=== PATIENT | female | born 1970 | race Caucasian/White ===

== ENCOUNTER 2018-04-01 13:52 | Inpatient (IN) | payer MEDICAID ==
[2018-04-01] MEDS: PANTOPRAZOLE 40 MG INJ IV (16:39)
[2018-04-01] MEDS: morphine 4 MG/ML VIAL IV (16:40)
[2018-04-01] MEDS: SODIUM CHLORIDE 0.9% 1L BAG IV* (16:40)
[2018-04-01] MEDS: ONDANSETRON 4 MG INJ IV ×2 (16:40→22:50)
[2018-04-01] MEDS: PIPER-TAZO 3.375 GM IV (PMX) 100 ML IVPB (16:40)
[2018-04-01 16:42] LABS: ADD MAN DIFF? NO
[2018-04-01 16:48] LABS: ABNORMAL IP MESSAGE 1; HEMATOCRIT 29.4 % (37.0-47.0); HEMOGLOBIN 9.4 g/dl (12.0-16.0); MEAN CORPUSCULAR HEMOGLOBIN 27.4 pg (29.0-33.0); MEAN CORPUSCULAR VOLUME 85.7 fl (82.0-101.0); MEAN PLATELET VOLUME 9.6 fl (7.4-10.4); PLATELET COUNT 375 10^3/UL (140-415); RED BLOOD COUNT 3.43 10^6/ul (4.20-5.40); RED CELL DISTRIBUTION WIDTH 14.7 % (11.5-14.5)
[2018-04-01 16:52] LABS: POSITIVE DIFF @See below
[2018-04-01 17:05] LABS: ANION GAP 12 (8-16); BLOOD UREA NITROGEN 13 mg/dl (7-20); CALCIUM 8.6 mg/dl (8.4-10.2); CARBON DIOXIDE 25 mmol/L (21-31); CHLORIDE 104 mmol/L (97-110); CREATININE 0.84 mg/dl (0.44-1.00); GLUCOSE 156 mg/dl (70-220); POTASSIUM 3.5 mmol/L (3.5-5.1); SODIUM 137 mmol/L (135-144)
[2018-04-01 17:07] LABS: PROTIME 14.4 Sec (11.9-14.9); PT RATIO 1.1
[2018-04-01 17:08] LABS: PARTIAL THROMBOPLASTIN TIME 32.8 Sec (23.0-35.0)
[2018-04-01 17:08] LABS: LACTIC ACID 3.1 mmol/L (0.5-2.0)
[2018-04-01 17:17] LABS: TROPONIN-I < 0.012 ng/ml (0.000-0.120)
[2018-04-01 17:52] LABS: BAND NEUTROPHILS #M 4.8 10^3/ul (0.0-0.6); BAND NEUTROPHILS % (M) 30 % (0-4); BASOPHIL #M 0.4 10^3/ul (0.0-0.0); BASOPHILS % (M) 3 % (0-2); GIANT THROMBO% (M) 2 % (0-0); LYMPHOCYTES #M 0.4 10^3/ul (0.8-2.9); LYMPHOCYTES % (M) 3 % (15-51); METAMYELOCYTES #M 0.1 10^3/ul (0.0-0.0); METAMYELOCYTES %M 1 % (0-0); MONOCYTE #M 0.8 10^3/ul (0.3-0.9); MONOCYTES % (M) 5 % (0-11); PLATELET ESTIMATE NORMAL; POLYCHROMASIA 1+ (0-0); REACTIVE LYMPHOCYTES #M 0.1 10^3/ul (0.0-0.0); REACTIVE LYMPHOCYTES% (M) 1 % (0-0); SEG NEUT #M 9.9 10^3/ul (1.6-7.5); SEGMENTED NEUTROPHILS (M) % 57 % (39-77); SMUDGE%M 3 % (0-0)
[2018-04-01] MEDS: VANCOMYCIN 1 GM (PMX) 250 ML IVPB (17:58)
[2018-04-01] MEDS: ACETAMINOPHEN 325 MG TAB PO (17:58)
[2018-04-01] MEDS: HYDROmorphONE 0.5 MG/0.5 ML SYG IV (18:12)
[2018-04-01] MEDS: SOD CHLORIDE 0.9% 100 ML (19:04)
[2018-04-01] MEDS: IOHEXOL 300MG/ML 150 ML BTL (19:04)
[2018-04-01] MEDS ORDERED: hydrALAzine 20 MG INJ IV (19:30)
[2018-04-01] MEDS ORDERED: LORAZEPAM 2 MG INJ IV (19:30)
[2018-04-01] MEDS ORDERED: NA PHOSPHATE/BIPHOS 133 ML ENEMA PR (19:30)
[2018-04-01] MEDS ORDERED: NITROGLYCERIN (SL) 0.4 MG TAB SL (19:30)
[2018-04-01] MEDS ORDERED: NACL 0.9% 3 ML SYG IV (19:30)
[2018-04-01] MEDS ORDERED: VANCOMYCIN IV PER PHARMACY XX (19:30)
[2018-04-01] MEDS ORDERED: ONDANSETRON 4 MG INJ IV (19:30)
[2018-04-01] MEDS ORDERED: ACETAMINOPHEN 325 MG TAB PO (19:30)
[2018-04-01] MEDS ORDERED: ALBUTEROL/IPRATROPIUM (NEB) 3 ML AMP HHN (19:30)
[2018-04-01 20:13] LABS: LACTIC ACID 1.6 mmol/L (0.5-2.0)
[2018-04-01 20:17] LABS: FREE T4 (FREE THYROXINE) 1.77 ng/dl (0.64-1.79)
[2018-04-01] MEDS: SOD CHLORIDE 0.9% 1,000 ML IV (22:50)
[2018-04-01] MEDS: HEPARIN 5,000 UNIT/0.5 ML VIAL SC (22:52)
[2018-04-01 23:52] LABS: LACTIC ACID 1.8 mmol/L (0.5-2.0)
[2018-04-02] MEDS: PIPER-TAZO 3.375 GM IV (PMX) 100 ML IVPB ×5 (00:11→23:45)
[2018-04-02] MEDS: VANCOMYCIN 1 GM 250 ML IVPB (01:04)
[2018-04-02] MEDS: SOD CHLORIDE 0.9% 1,000 ML IV ×3 (02:04→16:30)
[2018-04-02] MEDS: MIDODRINE 5 MG TAB PO (02:58)
[2018-04-02 06:21] LABS: ABNORMAL IP MESSAGE 1; HEMATOCRIT 26.4 % (37.0-47.0); HEMOGLOBIN 8.2 g/dl (12.0-16.0); MEAN CORPUSCULAR HEMOGLOBIN 27.7 pg (29.0-33.0); MEAN CORPUSCULAR HGB CONC 31.1 g/dl (32.0-37.0); MEAN CORPUSCULAR VOLUME 89.2 fl (82.0-101.0); MEAN PLATELET VOLUME 10.4 fl (7.4-10.4); NUCLEATED RED BLOOD CELLS% 0.2 /100WBC (0.0-0.0); PLATELET COUNT 323 10^3/UL (140-415); RED BLOOD COUNT 2.96 10^6/ul (4.20-5.40); RED CELL DISTRIBUTION WIDTH 15.3 % (11.5-14.5)
[2018-04-02 06:21] LABS: WHITE BLOOD COUNT 11.5 10^3/ul (4.8-10.8)
[2018-04-02] MEDS: PANTOPRAZOLE 40 MG INJ IV (06:24)
[2018-04-02] MEDS: HYDROCODONE/APAP (5/325) TAB PO ×2 (06:26→17:14)
[2018-04-02 06:37] LABS: CHOL/HDL RATIO 7.5 RATIO; HDL CHOLESTEROL 13 mg/dl (34-88); LDL CHOLESTEROL,CALCULATED 56 mg/dl; TRIGLYCERIDES 144 mg/dl (0-149)
[2018-04-02 06:37] LABS: CHOLESTEROL 98 mg/dl (100-200)
[2018-04-02 06:56] LABS: ANION GAP 12 (8-16); BLOOD UREA NITROGEN 12 mg/dl (7-20); CALCIUM 7.5 mg/dl (8.4-10.2); CARBON DIOXIDE 18 mmol/L (21-31); CHLORIDE 113 mmol/L (97-110); CREATININE 0.58 mg/dl (0.44-1.00); GLUCOSE 152 mg/dl (70-220); MAGNESIUM 1.7 mg/dl (1.7-2.5); POTASSIUM 4.6 mmol/L (3.5-5.1); SODIUM 138 mmol/L (135-144)
[2018-04-02 07:08] LABS: ADD MAN DIFF? YES; POSITIVE DIFF @See below
[2018-04-02] MEDS: HEPARIN 5,000 UNIT/0.5 ML VIAL SC ×2 (09:27→21:13)
[2018-04-02 09:32] LABS: ANISOCYTOSIS 1+ (0-0); BAND NEUTROPHILS #M 1.6 10^3/ul (0.0-0.6); BAND NEUTROPHILS % (M) 14 % (0-4); BURR CELLS 2+ (0-0); EOSINOPHILS % (M) 2 % (0-7); GIANT THROMBO% (M) 2 % (0-0); LYMPHOCYTES #M 0.9 10^3/ul (0.8-2.9); LYMPHOCYTES % (M) 8 % (15-51); MONOCYTES % (M) 9 % (0-11); PLATELET ESTIMATE NORMAL; POIKILOCYTOSIS 3+ (0-0); POLYCHROMASIA 2+ (0-0); SEG NEUT #M 7.9 10^3/ul (1.6-7.5); SEGMENTED NEUTROPHILS (M) % 67 % (39-77); SMUDGE%M 8 % (0-0); TOXIC GRANULATION 1+ (0-0)
[2018-04-02] MEDS: VANCOMYCIN 1.25 GM in SOD CHLORIDE 0.9% 250 ML IVPB (13:34)
[2018-04-02 15:59] LABS: HEMOGLOBIN A1C 5.7 % (0-5.9)
[2018-04-02] MEDS: KETOROLAC 30 MG INJ IV (17:18)
[2018-04-03] MEDS: ACETAMINOPHEN 325 MG TAB PO ×2 (00:06→20:14)
[2018-04-03] MEDS: VANCOMYCIN 1.25 GM in SOD CHLORIDE 0.9% 250 ML IVPB ×2 (01:06→14:30)
[2018-04-03] MEDS: SOD CHLORIDE 0.9% 1,000 ML IV ×3 (01:20→21:20)
[2018-04-03] MEDS: IBUPROFEN 200 MG TAB PO (02:34)
[2018-04-03 05:09] LABS: ABNORMAL IP MESSAGE 1; HEMATOCRIT 23.5 % (37.0-47.0); HEMOGLOBIN 7.5 g/dl (12.0-16.0); MEAN CORPUSCULAR HEMOGLOBIN 27.5 pg (29.0-33.0); MEAN CORPUSCULAR HGB CONC 31.9 g/dl (32.0-37.0); MEAN CORPUSCULAR VOLUME 86.1 fl (82.0-101.0); NUCLEATED RED BLOOD CELLS% 0.2 /100WBC (0.0-0.0); PLATELET COUNT 363 10^3/UL (140-415); RED BLOOD COUNT 2.73 10^6/ul (4.20-5.40); RED CELL DISTRIBUTION WIDTH 15.8 % (11.5-14.5)
[2018-04-03 05:09] LABS: WHITE BLOOD COUNT 13.2 10^3/ul (4.8-10.8)
[2018-04-03 05:12] LABS: ADD MAN DIFF? YES; POSITIVE DIFF @See below
[2018-04-03] MEDS: PANTOPRAZOLE 40 MG INJ IV (05:31)
[2018-04-03] MEDS: PIPER-TAZO 3.375 GM IV (PMX) 100 ML IVPB ×4 (05:31→23:34)
[2018-04-03 05:32] LABS: ANION GAP 10 (8-16); BLOOD UREA NITROGEN 14 mg/dl (7-20); CALCIUM 7.8 mg/dl (8.4-10.2); CARBON DIOXIDE 21 mmol/L (21-31); CHLORIDE 114 mmol/L (97-110); CREATININE 0.84 mg/dl (0.44-1.00); GLUCOSE 166 mg/dl (70-220); MAGNESIUM 1.8 mg/dl (1.7-2.5); POTASSIUM 3.6 mmol/L (3.5-5.1); SODIUM 141 mmol/L (135-144)
[2018-04-03 06:24] LABS: TOTAL IRON BINDING CAPACITY 217 ug/dl (241-421)
[2018-04-03 06:27] LABS: IRON < 10 ug/dl (35-150)
[2018-04-03 09:02] LABS: BAND NEUTROPHILS #M 4.2 10^3/ul (0.0-0.6); BAND NEUTROPHILS % (M) 32 % (0-4); ERYTHROBLAST% (NRBC) (M) 1 % (0-0); LYMPHOCYTES #M 1.9 10^3/ul (0.8-2.9); LYMPHOCYTES % (M) 15 % (15-51); MONOCYTE #M 0.5 10^3/ul (0.3-0.9); MONOCYTES % (M) 4 % (0-11); MYELOCYTES #M 0.1 10^3/ul (0.0-0.0); MYELOCYTES % (M) 1 % (0-0); PLATELET ESTIMATE NORMAL; POIKILOCYTOSIS 1+ (0-0); POLYCHROMASIA 2+ (0-0); PROMYELOCYTES #M 0.2 10^3/ul (0-0); PROMYELOCYTES % (M) 2 % (0-0); SEG NEUT #M 6.6 10^3/ul (1.6-7.5); SEGMENTED NEUTROPHILS (M) % 46 % (39-77); SMUDGE%M 25 % (0-0); TOXIC GRANULATION 1+ (0-0)
[2018-04-03] MEDS: HEPARIN 5,000 UNIT/0.5 ML VIAL SC ×2 (09:15→20:50)
[2018-04-03] MEDS: HYDROCODONE/APAP (5/325) TAB PO (12:31)
[2018-04-03 13:28] LABS: VANCOMYCIN,TROUGH 13.9 ug/ml (10.0-20.0)
[2018-04-03] MEDS: AL HYDROX/MG HYDROX/SIMETH 30 ML CUP PO (20:14)
[2018-04-03] MEDS: IBUPROFEN 400 MG TAB PO (21:40)
[2018-04-04] MEDS: VANCOMYCIN 1.25 GM in SOD CHLORIDE 0.9% 250 ML IVPB ×2 (01:05→14:39)
[2018-04-04 05:22] LABS: WHITE BLOOD COUNT 15.6 10^3/ul (4.8-10.8)
[2018-04-04 05:22] LABS: ABNORMAL IP MESSAGE 1; HEMATOCRIT 25.4 % (37.0-47.0); HEMOGLOBIN 8.1 g/dl (12.0-16.0); MEAN CORPUSCULAR HEMOGLOBIN 27.7 pg (29.0-33.0); MEAN CORPUSCULAR HGB CONC 31.9 g/dl (32.0-37.0); MEAN PLATELET VOLUME 9.8 fl (7.4-10.4); PLATELET COUNT 430 10^3/UL (140-415); RED BLOOD COUNT 2.92 10^6/ul (4.20-5.40)
[2018-04-04 05:26] LABS: ADD MAN DIFF? YES; POSITIVE DIFF @See below
[2018-04-04] MEDS: PANTOPRAZOLE 40 MG INJ IV (05:30)
[2018-04-04] MEDS: PIPER-TAZO 3.375 GM IV (PMX) 100 ML IVPB ×2 (05:32→11:30)
[2018-04-04 05:54] LABS: ANION GAP 11 (8-16); BLOOD UREA NITROGEN 13 mg/dl (7-20); CALCIUM 8.2 mg/dl (8.4-10.2); CARBON DIOXIDE 23 mmol/L (21-31); CHLORIDE 110 mmol/L (97-110); CREATININE 1.01 mg/dl (0.44-1.00); GLUCOSE 132 mg/dl (70-220); POTASSIUM 3.6 mmol/L (3.5-5.1); SODIUM 140 mmol/L (135-144)
[2018-04-04 07:27] LABS: BAND NEUTROPHILS #M 4.6 10^3/ul (0.0-0.6); BAND NEUTROPHILS % (M) 30 % (0-4); BURR CELLS 2+ (0-0); GIANT THROMBO% (M) 1 % (0-0); LYMPHOCYTES #M 0.6 10^3/ul (0.8-2.9); LYMPHOCYTES % (M) 4 % (15-51); METAMYELOCYTES #M 0.1 10^3/ul (0.0-0.0); METAMYELOCYTES %M 1 % (0-0); MONOCYTE #M 0.7 10^3/ul (0.3-0.9); MONOCYTES % (M) 5 % (0-11); MYELOCYTES #M 0.1 10^3/ul (0.0-0.0); MYELOCYTES % (M) 1 % (0-0); PLATELET ESTIMATE NORMAL; POIKILOCYTOSIS 1+ (0-0); POLYCHROMASIA 2+ (0-0); PROMYELOCYTES #M 0.1 10^3/ul (0-0); PROMYELOCYTES % (M) 1 % (0-0); REACTIVE LYMPHOCYTES% (M) 7 % (0-0); SEG NEUT #M 8.7 10^3/ul (1.6-7.5); SEGMENTED NEUTROPHILS (M) % 51 % (39-77); SMUDGE%M 8 % (0-0); TARGET CELLS 2+ (0-0)
[2018-04-04] MEDS: SOD CHLORIDE 0.9% 1,000 ML IV (07:58)
[2018-04-04] MEDS: HEPARIN 5,000 UNIT/0.5 ML VIAL SC ×2 (09:06→20:46)
[2018-04-04] MEDS: HYDROCODONE/APAP (5/325) TAB PO (09:11)
[2018-04-04] MEDS: morphine 2 MG INJ IV ×2 (10:39→18:25)
[2018-04-04] MEDS ORDERED: KETOROLAC 30 MG INJ IV (11:16)
[2018-04-04] MEDS: KETOROLAC 30 MG INJ IV (11:29)
[2018-04-04] MEDS ORDERED: KETOROLAC 15 MG INJ IV (11:30)
[2018-04-04] MEDS: CEFEPIME 1GM/50 ML (PMX) 50 ML IVPB (20:40)
[2018-04-04] MEDS: ACETAMINOPHEN 325 MG TAB PO (23:41)
[2018-04-05 01:44] LABS: VANCOMYCIN,TROUGH 13.2 ug/ml (10.0-20.0)
[2018-04-05] MEDS: VANCOMYCIN 1.25 GM in SOD CHLORIDE 0.9% 250 ML IVPB ×2 (02:23→12:22)
[2018-04-05] MEDS: PANTOPRAZOLE 40 MG INJ IV (05:46)
[2018-04-05] MEDS: MAGNESIUM HYDROXIDE 30ML CUP PO (05:48)
[2018-04-05 06:16] LABS: ADD UMIC YES; UR ASCORBIC ACID NEGATIVE (NEGATIVE); UR BACTERIA FEW /HPF (NONE SEEN); UR BILIRUBIN (Dip) NEGATIVE (NEGATIVE); UR BLOOD (Dip) NEGATIVE (NEGATIVE); UR CLARITY SLIGHTLY CLOUDY (CLEAR); UR COLOR YELLOW (YELLOW); UR GLUCOSE (Dip) NEGATIVE (NEGATIVE); UR KETONES (Dip) NEGATIVE (NEGATIVE); UR LEUKOCYTE ESTERASE (Dip) NEGATIVE Leu/ul (NEGATIVE); UR NITRITE (Dip) NEGATIVE (NEGATIVE); UR RBC 1 /HPF (0-5); UR SQUAMOUS EPITHELIAL CELL FEW /HPF (FEW); UR TOTAL PROTEIN (Dip) 1+ mg/dl (NEGATIVE); UR UROBILINOGEN (Dip) NEGATIVE (NEGATIVE); UR WBC 2 /HPF (0-5)
[2018-04-05 07:02] LABS: WHITE BLOOD COUNT 17.4 10^3/ul (4.8-10.8)
[2018-04-05 07:02] LABS: ABNORMAL IP MESSAGE 1; HEMATOCRIT 23.4 % (37.0-47.0); HEMOGLOBIN 7.6 g/dl (12.0-16.0); MEAN CORPUSCULAR HEMOGLOBIN 27.7 pg (29.0-33.0); MEAN CORPUSCULAR HGB CONC 32.5 g/dl (32.0-37.0); MEAN CORPUSCULAR VOLUME 85.4 fl (82.0-101.0); MEAN PLATELET VOLUME 10.1 fl (7.4-10.4); NUCLEATED RED BLOOD CELLS% 0.1 /100WBC (0.0-0.0); PLATELET COUNT 477 10^3/UL (140-415); RED BLOOD COUNT 2.74 10^6/ul (4.20-5.40); RED CELL DISTRIBUTION WIDTH 16.2 % (11.5-14.5)
[2018-04-05 07:07] LABS: ADD MAN DIFF? YES; POSITIVE DIFF @See below
[2018-04-05 07:21] LABS: ANION GAP 9 (8-16); BLOOD UREA NITROGEN 15 mg/dl (7-20); CALCIUM 8.1 mg/dl (8.4-10.2); CARBON DIOXIDE 23 mmol/L (21-31); CHLORIDE 109 mmol/L (97-110); CREATININE 0.92 mg/dl (0.44-1.00); GLUCOSE 124 mg/dl (70-220); POTASSIUM 3.6 mmol/L (3.5-5.1); SODIUM 137 mmol/L (135-144)
[2018-04-05] MEDS: CEFEPIME 1GM/50 ML (PMX) 50 ML IVPB (08:34)
[2018-04-05] MEDS: HEPARIN 5,000 UNIT/0.5 ML VIAL SC ×2 (08:38→21:25)
[2018-04-05] MEDS: morphine 2 MG INJ IV ×4 (08:52→21:31)
[2018-04-05 10:05] LABS: ANISOCYTOSIS 1+ (0-0); BAND NEUTROPHILS % (M) 12 % (0-4); BURR CELLS 1+ (0-0); EOSINOPHILS % (M) 1 % (0-7); LYMPHOCYTES #M 1.5 10^3/ul (0.8-2.9); LYMPHOCYTES % (M) 9 % (15-51); METAMYELOCYTES #M 0.1 10^3/ul (0.0-0.0); METAMYELOCYTES %M 1 % (0-0); MONOCYTE #M 0.6 10^3/ul (0.3-0.9); MONOCYTES % (M) 4 % (0-11); MYELOCYTES #M 0.1 10^3/ul (0.0-0.0); MYELOCYTES % (M) 1 % (0-0); PLATELET ESTIMATE NORMAL; PLATELET MORPHOLOGY COMMENT @See below; POIKILOCYTOSIS 1+ (0-0); POLYCHROMASIA 2+ (0-0); REACTIVE LYMPHOCYTES #M 0.3 10^3/ul (0.0-0.0); REACTIVE LYMPHOCYTES% (M) 2 % (0-0); SEG NEUT #M 13.1 10^3/ul (1.6-7.5); SEGMENTED NEUTROPHILS (M) % 73 % (39-77); SMUDGE%M 67 % (0-0); TARGET CELLS 1+ (0-0)
[2018-04-05] MEDS: ACETAMINOPHEN 325 MG TAB PO (18:31)
[2018-04-05] MEDS: MEROPENEM 1 GM/50ML(PMX) 50 ML IVPB (18:33)
[2018-04-06] MEDS: VANCOMYCIN 1.25 GM in SOD CHLORIDE 0.9% 250 ML IVPB ×2 (00:58→13:28)
[2018-04-06] MEDS: morphine 2 MG INJ IV ×4 (01:49→19:45)
[2018-04-06] MEDS: KETOROLAC 15 MG INJ IV (04:55)
[2018-04-06] MEDS: PANTOPRAZOLE 40 MG INJ IV (05:55)
[2018-04-06] MEDS: MEROPENEM 1 GM/50ML(PMX) 50 ML IVPB ×3 (05:56→21:50)
[2018-04-06] MEDS ORDERED: SEVOFLURANE 15 MIN (07:00)
[2018-04-06 08:38] LABS: WHITE BLOOD COUNT 15.3 10^3/ul (4.8-10.8)
[2018-04-06 08:38] LABS: ABNORMAL IP MESSAGE 1; HEMATOCRIT 22.2 % (37.0-47.0); HEMOGLOBIN 7.1 g/dl (12.0-16.0); MEAN CORPUSCULAR HEMOGLOBIN 27.3 pg (29.0-33.0); MEAN CORPUSCULAR VOLUME 85.4 fl (82.0-101.0); MEAN PLATELET VOLUME 9.7 fl (7.4-10.4); PLATELET COUNT 497 10^3/UL (140-415)
[2018-04-06 08:51] LABS: POSITIVE DIFF @See below
[2018-04-06 08:52] LABS: ADD MAN DIFF? YES
[2018-04-06 09:00] LABS: ANION GAP 9 (8-16); BLOOD UREA NITROGEN 11 mg/dl (7-20); CALCIUM 7.7 mg/dl (8.4-10.2); CARBON DIOXIDE 25 mmol/L (21-31); CHLORIDE 111 mmol/L (97-110); CREATININE 0.83 mg/dl (0.44-1.00); GLUCOSE 97 mg/dl (70-220); POTASSIUM 3.6 mmol/L (3.5-5.1); SODIUM 141 mmol/L (135-144)
[2018-04-06] MEDS: HEPARIN 5,000 UNIT/0.5 ML VIAL SC ×2 (09:00→20:53)
[2018-04-06] MEDS ORDERED: ROCURONIUM 50 MG INJ (09:58)
[2018-04-06] MEDS ORDERED: GLYCOPYRROLATE 0.4 MG INJ ×2 (09:58→10:42)
[2018-04-06] MEDS ORDERED: SUCCINYLCHOLINE CHLORIDE 100 MG/5 ML SYG IV (09:58)
[2018-04-06] MEDS ORDERED: MEPERIDINE 100 MG INJ (09:58)
[2018-04-06] MEDS ORDERED: LIDOCAINE 2% (SDV) 5 ML INJ (09:58)
[2018-04-06] MEDS ORDERED: NEOSTIGMINE 3 MG/3 ML SYRINGE ×2 (09:58→10:42)
[2018-04-06] MEDS ORDERED: PROPOFOL 20 ML (09:58)
[2018-04-06] MEDS ORDERED: POLYMYXIN/BACITRACIN 1L IRRIG (10:23)
[2018-04-06 10:32] LABS: ANISOCYTOSIS 1+ (0-0); BAND NEUTROPHILS #M 0.9 10^3/ul (0.0-0.6); BAND NEUTROPHILS % (M) 6 % (0-4); BURR CELLS 1+ (0-0); GIANT THROMBO% (M) 1 % (0-0); LYMPHOCYTES % (M) 7 % (15-51); METAMYELOCYTES #M 0.3 10^3/ul (0.0-0.0); METAMYELOCYTES %M 2 % (0-0); MONOCYTE #M 0.9 10^3/ul (0.3-0.9); MONOCYTES % (M) 6 % (0-11); MYELOCYTES #M 0.4 10^3/ul (0.0-0.0); MYELOCYTES % (M) 3 % (0-0); PLATELET ESTIMATE NORMAL; POIKILOCYTOSIS 1+ (0-0); POLYCHROMASIA 1+ (0-0); PROMYELOCYTES #M 0.1 10^3/ul (0-0); PROMYELOCYTES % (M) 1 % (0-0); REACTIVE LYMPHOCYTES #M 0.1 10^3/ul (0.0-0.0); REACTIVE LYMPHOCYTES% (M) 1 % (0-0); SEG NEUT #M 11.5 10^3/ul (1.6-7.5); SEGMENTED NEUTROPHILS (M) % 74 % (39-77); SMUDGE%M 12 % (0-0)
[2018-04-06] MEDS ORDERED: METOCLOPRAMIDE 10 MG INJ (10:42)
[2018-04-06] MEDS ORDERED: ONDANSETRON 4 MG INJ (10:42)
[2018-04-06] MEDS: SODIUM HYPOCHLORITE (1/40) 1 APPLIC BTL IRR (11:00)
[2018-04-06] MEDS ORDERED: SUGAMMADEX SODIUM 200 MG/2 ML VIAL IV ×2 (11:57→12:05)
[2018-04-06] MEDS: POLYMYXIN B 500000 UNIT INJ (12:01)
[2018-04-06] MEDS: BACITRACIN 50000 UNITS INJ IRR (12:02)
[2018-04-06] MEDS: D5W-0.45 NACL + KCL 20 MEQ 1,000 ML IV (13:33)
[2018-04-06] MEDS: ACETAMINOPHEN 325 MG TAB PO (21:01)
[2018-04-07] MEDS: morphine 2 MG INJ IV ×5 (00:13→15:01)
[2018-04-07] MEDS: VANCOMYCIN 1.25 GM in SOD CHLORIDE 0.9% 250 ML IVPB ×2 (00:43→12:40)
[2018-04-07] MEDS: PANTOPRAZOLE 40 MG INJ IV (06:20)
[2018-04-07] MEDS: ENOXAPARIN 40 MG/0.4 ML SYG SC (06:25)
[2018-04-07] MEDS: MEROPENEM 1 GM/50ML(PMX) 50 ML IVPB ×3 (06:32→21:53)
[2018-04-07 07:10] LABS: ABNORMAL IP MESSAGE 1; HEMATOCRIT 21.9 % (37.0-47.0); MEAN CORPUSCULAR HEMOGLOBIN 27.5 pg (29.0-33.0); MEAN CORPUSCULAR VOLUME 85.9 fl (82.0-101.0); MEAN PLATELET VOLUME 9.7 fl (7.4-10.4); PLATELET COUNT 495 10^3/UL (140-415); RED BLOOD COUNT 2.55 10^6/ul (4.20-5.40); RED CELL DISTRIBUTION WIDTH 15.9 % (11.5-14.5)
[2018-04-07 07:10] LABS: WHITE BLOOD COUNT 17.6 10^3/ul (4.8-10.8)
[2018-04-07 07:12] LABS: POSITIVE DIFF @See below
[2018-04-07 07:13] LABS: ADD MAN DIFF? YES
[2018-04-07 07:45] LABS: BLOOD UREA NITROGEN 9 mg/dl (7-20); CALCIUM 7.1 mg/dl (8.4-10.2); CARBON DIOXIDE 25 mmol/L (21-31); CHLORIDE 106 mmol/L (97-110); CREATININE 0.77 mg/dl (0.44-1.00); GLUCOSE 129 mg/dl (70-220); POTASSIUM 3.7 mmol/L (3.5-5.1); SODIUM 137 mmol/L (135-144)
[2018-04-07] MEDS: D5W-0.45 NACL + KCL 20 MEQ 1,000 ML IV ×3 (08:00→12:40)
[2018-04-07] MEDS: HEPARIN 5,000 UNIT/0.5 ML VIAL SC (09:13)
[2018-04-07 09:20] LABS: ANISOCYTOSIS 2+ (0-0); BAND NEUTROPHILS #M 0.8 10^3/ul (0.0-0.6); BAND NEUTROPHILS % (M) 5 % (0-4); ERYTHROBLAST% (NRBC) (M) 1 % (0-0); LYMPHOCYTES #M 1.2 10^3/ul (0.8-2.9); LYMPHOCYTES % (M) 7 % (15-51); MONOCYTE #M 0.8 10^3/ul (0.3-0.9); MONOCYTES % (M) 5 % (0-11); MYELOCYTES #M 0.3 10^3/ul (0.0-0.0); MYELOCYTES % (M) 2 % (0-0); PLASMA CELLS #M 0.1 10^3/ul (0.0-0.0); PLASMAC%(M) 1 % (0); PLATELET ESTIMATE INCREASED; POIKILOCYTOSIS 1+ (0-0); POLYCHROMASIA 2+ (0-0); PROMYELOCYTES #M 0.3 10^3/ul (0-0); PROMYELOCYTES % (M) 2 % (0-0); SEG NEUT #M 13.9 10^3/ul (1.6-7.5); SEGMENTED NEUTROPHILS (M) % 78 % (39-77); SMUDGE%M 5 % (0-0); TARGET CELLS 1+ (0-0)
[2018-04-07 09:22] LABS: ANION GAP 6 (5-13)
[2018-04-07] MEDS: ACETAMINOPHEN 325 MG TAB PO (15:48)
[2018-04-07] MEDS: SODIUM HYPOCHLORITE (1/40) 1 APPLIC BTL IRR (15:49)
[2018-04-07] MEDS: KETOROLAC 30 MG INJ IV (21:58)
[2018-04-07 23:39] LABS: IMMEDIATE SPIN CROSSMATCH 1 1
[2018-04-08] MEDS: VANCOMYCIN 1.25 GM in SOD CHLORIDE 0.9% 250 ML IVPB ×2 (03:00→13:48)
[2018-04-08] MEDS: D5W-0.45 NACL + KCL 20 MEQ 1,000 ML IV ×2 (04:01→12:44)
[2018-04-08] MEDS: PANTOPRAZOLE 40 MG INJ IV (06:14)
[2018-04-08] MEDS: MEROPENEM 1 GM/50ML(PMX) 50 ML IVPB ×3 (06:14→21:39)
[2018-04-08] MEDS: ENOXAPARIN 40 MG/0.4 ML SYG SC (06:24)
[2018-04-08] MEDS: KETOROLAC 30 MG INJ IV ×3 (06:29→23:10)
[2018-04-08 06:55] LABS: WHITE BLOOD COUNT 13.9 10^3/ul (4.8-10.8)
[2018-04-08 06:55] LABS: ABNORMAL IP MESSAGE 1; HEMATOCRIT 24.6 % (37.0-47.0); MEAN CORPUSCULAR HEMOGLOBIN 28.1 pg (29.0-33.0); MEAN CORPUSCULAR HGB CONC 32.5 g/dl (32.0-37.0); MEAN CORPUSCULAR VOLUME 86.3 fl (82.0-101.0); MEAN PLATELET VOLUME 9.7 fl (7.4-10.4); PLATELET COUNT 483 10^3/UL (140-415); RED BLOOD COUNT 2.85 10^6/ul (4.20-5.40); RED CELL DISTRIBUTION WIDTH 15.4 % (11.5-14.5)
[2018-04-08 06:59] LABS: ADD MAN DIFF? YES; POSITIVE DIFF @See below
[2018-04-08 07:17] LABS: IRON 17 ug/dl (35-150)
[2018-04-08 07:23] LABS: BLOOD UREA NITROGEN 7 mg/dl (7-20); CALCIUM 7.2 mg/dl (8.4-10.2); CHLORIDE 108 mmol/L (97-110); CREATININE 0.65 mg/dl (0.44-1.00); GLUCOSE 104 mg/dl (70-220); POTASSIUM 4.1 mmol/L (3.5-5.1); SODIUM 139 mmol/L (135-144)
[2018-04-08 07:24] LABS: ANION GAP 3 (5-13); CARBON DIOXIDE 28 mmol/L (21-31)
[2018-04-08 07:27] LABS: % IRON SATURATION 8 % SAT (22-52); TOTAL IRON BINDING CAPACITY 212 ug/dl (241-421)
[2018-04-08 08:09] LABS: ANISOCYTOSIS 1+ (0-0); BAND NEUTROPHILS #M 0.9 10^3/ul (0.0-0.6); BAND NEUTROPHILS % (M) 7 % (0-4); ERYTHROBLAST% (NRBC) (M) 1 % (0-0); GIANT THROMBO% (M) 1 % (0-0); HYPOCHROMASIA 1+ (0-0); LYMPHOCYTES #M 1.1 10^3/ul (0.8-2.9); LYMPHOCYTES % (M) 8 % (15-51); METAMYELOCYTES #M 0.2 10^3/ul (0.0-0.0); METAMYELOCYTES %M 2 % (0-0); MONOCYTE #M 0.4 10^3/ul (0.3-0.9); MONOCYTES % (M) 3 % (0-11); MYELOCYTES #M 0.6 10^3/ul (0.0-0.0); MYELOCYTES % (M) 5 % (0-0); PLATELET ESTIMATE NORMAL; POLYCHROMASIA 1+ (0-0); SEG NEUT #M 10.6 10^3/ul (1.6-7.5); SEGMENTED NEUTROPHILS (M) % 75 % (39-77); SMUDGE%M 1 % (0-0)
[2018-04-08] MEDS: HYDROCODONE/APAP (5/325) TAB PO ×2 (08:48→21:41)
[2018-04-08] MEDS: MAGNESIUM HYDROXIDE 30ML CUP PO (08:48)
[2018-04-08] MEDS: DOCUSATE SODIUM 100 MG CAP PO (08:48)
[2018-04-08] MEDS: SODIUM HYPOCHLORITE (1/40) 1 APPLIC BTL IRR (09:21)
[2018-04-08] MEDS: HYDROmorphONE 1 MG/ML SYG IV (10:13)
[2018-04-08] MEDS: LORAZEPAM 2 MG INJ IV (10:14)
[2018-04-09] MEDS: D5W-0.45 NACL + KCL 20 MEQ 1,000 ML IV ×2 (00:01→10:01)
[2018-04-09] MEDS: VANCOMYCIN 1.25 GM in SOD CHLORIDE 0.9% 250 ML IVPB (00:42)
[2018-04-09 05:32] LABS: WHITE BLOOD COUNT 11.7 10^3/ul (4.8-10.8)
[2018-04-09 05:32] LABS: ABNORMAL IP MESSAGE 1; HEMATOCRIT 26.5 % (37.0-47.0); HEMOGLOBIN 8.3 g/dl (12.0-16.0); MEAN CORPUSCULAR HEMOGLOBIN 27.6 pg (29.0-33.0); MEAN CORPUSCULAR HGB CONC 31.3 g/dl (32.0-37.0); MEAN PLATELET VOLUME 10.5 fl (7.4-10.4); PLATELET COUNT 366 10^3/UL (140-415); RED BLOOD COUNT 3.01 10^6/ul (4.20-5.40); RED CELL DISTRIBUTION WIDTH 15.3 % (11.5-14.5)
[2018-04-09 05:33] LABS: ADD MAN DIFF? YES; POSITIVE DIFF @See below
[2018-04-09] MEDS: PANTOPRAZOLE 40 MG INJ IV (05:59)
[2018-04-09] MEDS: MEROPENEM 1 GM/50ML(PMX) 50 ML IVPB ×2 (05:59→13:35)
[2018-04-09] MEDS: KETOROLAC 30 MG INJ IV (06:04)
[2018-04-09 06:10] LABS: ANION GAP 4 (5-13); BLOOD UREA NITROGEN 11 mg/dl (7-20); CALCIUM 7.3 mg/dl (8.4-10.2); CARBON DIOXIDE 27 mmol/L (21-31); CHLORIDE 108 mmol/L (97-110); CREATININE 0.65 mg/dl (0.44-1.00); GLUCOSE 99 mg/dl (70-220); POTASSIUM 4.8 mmol/L (3.5-5.1); SODIUM 139 mmol/L (135-144)
[2018-04-09] MEDS: ENOXAPARIN 40 MG/0.4 ML SYG SC (06:25)
[2018-04-09 07:46] LABS: BASOPHIL #M 0.1 10^3/ul (0.0-0.0); BASOPHILS % (M) 1 % (0-2); EOSINOPHILS % (M) 3 % (0-7); LYMPHOCYTES % (M) 9 % (15-51); METAMYELOCYTES #M 0.2 10^3/ul (0.0-0.0); METAMYELOCYTES %M 2 % (0-0); MONOCYTE #M 0.5 10^3/ul (0.3-0.9); MONOCYTES % (M) 5 % (0-11); MYELOCYTES #M 0.1 10^3/ul (0.0-0.0); MYELOCYTES % (M) 1 % (0-0); PLATELET ESTIMATE NORMAL; POLYCHROMASIA 3+ (0-0); SEGMENTED NEUTROPHILS (M) % 79 % (39-77); SMUDGE%M 51 % (0-0)
[2018-04-09] MEDS: SODIUM HYPOCHLORITE (1/40) 1 APPLIC BTL IRR (08:49)
[2018-04-09] MEDS: IBUPROFEN 400 MG TAB PO ×2 (11:29→22:30)
[2018-04-09 13:12] LABS: VANCOMYCIN,TROUGH 18.2 ug/ml (10.0-20.0)
[2018-04-09] MEDS: morphine 2 MG INJ IV ×2 (13:35→21:37)
[2018-04-09] MEDS ORDERED: VANCOMYCIN 1 GM 250 ML IVPB (17:00)
[2018-04-10] MEDS: LEVOFLOXACIN 750 MG TABLET PO (08:13)
[2018-04-10] MEDS: SODIUM HYPOCHLORITE (1/40) 1 APPLIC BTL IRR (08:14)
[2018-04-10] MEDS: ENOXAPARIN 40 MG/0.4 ML SYG SC (08:14)
[2018-04-10] MEDS: IBUPROFEN 400 MG TAB PO ×2 (10:21→22:26)
[2018-04-11] MEDS: LEVOFLOXACIN 750 MG TABLET PO (09:39)
[2018-04-11] MEDS: ENOXAPARIN 40 MG/0.4 ML SYG SC (09:44)
[2018-04-11] MEDS: AL HYDROX/MG HYDROX/SIMETH 30 ML CUP PO (09:49)
[2018-04-11] MEDS: SODIUM HYPOCHLORITE (1/40) 1 APPLIC BTL IRR (09:55)
[2018-04-11] MEDS: IBUPROFEN 400 MG TAB PO ×2 (09:55→21:43)
[2018-04-11] MEDS: LORAZEPAM 2 MG INJ IV (13:37)
[2018-04-11] MEDS: HYDROmorphONE 1 MG/ML SYG IV (13:37)
[2018-04-11] MEDS: HYDROCODONE/APAP (5/325) TAB PO (14:57)
[2018-04-12] MEDS: morphine 2 MG INJ IV (04:45)
[2018-04-12] MEDS: ENOXAPARIN 40 MG/0.4 ML SYG SC (06:41)
[2018-04-12] MEDS: SODIUM HYPOCHLORITE (1/40) 1 APPLIC BTL IRR (09:00)
[2018-04-12] MEDS: LEVOFLOXACIN 750 MG TABLET PO (10:30)
[2018-04-12] MEDS: IBUPROFEN 400 MG TAB PO ×2 (11:30→21:58)
[2018-04-13] MEDS: ENOXAPARIN 40 MG/0.4 ML SYG SC (06:42)
[2018-04-13] MEDS: SODIUM HYPOCHLORITE (1/40) 1 APPLIC BTL IRR (09:00)
[2018-04-13] MEDS: LEVOFLOXACIN 750 MG TABLET PO (10:12)
[2018-04-13] MEDS: IBUPROFEN 400 MG TAB PO ×2 (10:12→21:40)
[2018-04-13] MEDS: LORAZEPAM 2 MG INJ IV (14:15)
[2018-04-13] MEDS: LIDOCAINE 2% (MDV) 20 ML INJ INJ (14:15)
[2018-04-13] MEDS: HYDROmorphONE 1 MG/ML SYG IV (14:15)
[2018-04-14] MEDS: ENOXAPARIN 40 MG/0.4 ML SYG SC (06:49)
[2018-04-14] MEDS: SODIUM HYPOCHLORITE (1/40) 1 APPLIC BTL IRR (09:00)
[2018-04-14] MEDS: IBUPROFEN 400 MG TAB PO ×2 (10:30→22:30)
[2018-04-14] MEDS: morphine 2 MG INJ IV ×2 (11:09→21:21)
[2018-04-14] MEDS: DOCUSATE SODIUM 100 MG CAP PO ×2 (12:00→21:18)
[2018-04-14] MEDS: LEVOFLOXACIN 750 MG TABLET PO (13:38)
[2018-04-14] MEDS: SENNA TAB PO ×2 (13:39→21:17)
[2018-04-15] MEDS: ENOXAPARIN 40 MG/0.4 ML SYG SC (06:14)
[2018-04-15] MEDS: SODIUM HYPOCHLORITE (1/40) 1 APPLIC BTL IRR (09:00)
[2018-04-15] MEDS: SENNA TAB PO ×2 (09:00→20:28)
[2018-04-15] MEDS: MAGNESIUM HYDROXIDE 30ML CUP PO (09:04)
[2018-04-15] MEDS: LEVOFLOXACIN 750 MG TABLET PO (09:04)
[2018-04-15] MEDS: DOCUSATE SODIUM 100 MG CAP PO ×2 (09:05→20:28)
[2018-04-15] MEDS: IBUPROFEN 400 MG TAB PO ×2 (10:30→22:30)
[2018-04-15] MEDS: BISACODYL 10 MG SUPP PR (11:44)
[2018-04-15] MEDS: LORAZEPAM 2 MG INJ IV (13:47)
[2018-04-15] MEDS: HYDROmorphONE 1 MG/ML SYG IV (13:47)
[2018-04-15] MEDS: LIDOCAINE 4% SOLUTION 50 ML BTL TOP (14:11)
[2018-04-15] MEDS: ONDANSETRON 4 MG INJ IV (18:03)
[2018-04-15] MEDS: BISACODYL (EC) 5 MG TAB PO (18:03)
[2018-04-15] MEDS: ACETAMINOPHEN 325 MG TAB PO (20:32)
[2018-04-16] MEDS: ENOXAPARIN 40 MG/0.4 ML SYG SC (06:20)
[2018-04-16] MEDS: SODIUM HYPOCHLORITE (1/40) 1 APPLIC BTL IRR (09:00)
[2018-04-16] MEDS: SENNA TAB PO ×2 (09:12→20:15)
[2018-04-16] MEDS: IBUPROFEN 400 MG TAB PO ×2 (09:13→22:30)
[2018-04-16] MEDS: DOCUSATE SODIUM 100 MG CAP PO ×2 (09:13→20:14)
[2018-04-16] MEDS: LEVOFLOXACIN 750 MG TABLET PO (10:31)
[2018-04-16] MEDS: HYDROCODONE/APAP (5/325) TAB PO ×2 (13:36→20:14)
[2018-04-16] MEDS: morphine LIQ (10 MG/5 ML) CUP PO (16:32)
[2018-04-16] MEDS: ONDANSETRON 4 MG INJ IV (20:14)
[2018-04-17] MEDS: ENOXAPARIN 40 MG/0.4 ML SYG SC (06:24)
[2018-04-17] MEDS: SODIUM HYPOCHLORITE (1/40) 1 APPLIC BTL IRR (09:00)
[2018-04-17] MEDS: LEVOFLOXACIN 750 MG TABLET PO (10:21)
[2018-04-17] MEDS: IBUPROFEN 400 MG TAB PO ×2 (10:22→22:30)
[2018-04-17] MEDS: DOCUSATE SODIUM 100 MG CAP PO ×2 (10:22→21:05)
[2018-04-17] MEDS: SENNA TAB PO ×2 (10:22→21:06)
[2018-04-17] MEDS: ONDANSETRON 4 MG INJ IV (11:52)
[2018-04-18] MEDS: ENOXAPARIN 40 MG/0.4 ML SYG SC (06:09)
[2018-04-18] MEDS: SENNA TAB PO ×2 (08:50→20:10)
[2018-04-18] MEDS: DOCUSATE SODIUM 100 MG CAP PO ×2 (08:50→20:10)
[2018-04-18] MEDS: LEVOFLOXACIN 750 MG TABLET PO (08:53)
[2018-04-18] MEDS: SODIUM HYPOCHLORITE (1/40) 1 APPLIC BTL IRR (08:53)
[2018-04-18] MEDS: IBUPROFEN 400 MG TAB PO ×2 (10:30→21:09)
[2018-04-18] MEDS: HYDROmorphONE 1 MG/ML SYG IV (12:12)
[2018-04-18] MEDS: LORAZEPAM 2 MG INJ IV (12:13)
[2018-04-18] MEDS: LIDOCAINE 4% SOLUTION 50 ML BTL TOP (12:23)
[2018-04-18] MEDS: ONDANSETRON 4 MG INJ IV (15:26)
[2018-04-19] MEDS: ENOXAPARIN 40 MG/0.4 ML SYG SC (06:21)
[2018-04-19] MEDS: SODIUM HYPOCHLORITE (1/40) 1 APPLIC BTL IRR (08:25)
[2018-04-19] MEDS: SENNA TAB PO ×2 (08:31→20:50)
[2018-04-19] MEDS: DOCUSATE SODIUM 100 MG CAP PO ×2 (08:31→20:50)
[2018-04-19] MEDS: IBUPROFEN 400 MG TAB PO ×2 (10:30→22:30)
[2018-04-19] MEDS: HYDROmorphONE 1 MG/ML SYG IV (10:44)
[2018-04-20] MEDS: BISACODYL 10 MG SUPP PR (01:36)
[2018-04-20] MEDS: ENOXAPARIN 40 MG/0.4 ML SYG SC (06:07)
[2018-04-20] MEDS: SENNA TAB PO ×2 (08:19→21:13)
[2018-04-20] MEDS: DOCUSATE SODIUM 100 MG CAP PO ×2 (08:19→21:13)
[2018-04-20] MEDS: HYDROCODONE/APAP (5/325) TAB PO (08:26)
[2018-04-20] MEDS: SODIUM HYPOCHLORITE (1/40) 1 APPLIC BTL IRR (09:00)
[2018-04-20] MEDS: IBUPROFEN 400 MG TAB PO ×2 (10:30→22:30)
[2018-04-20] MEDS: LORAZEPAM 2 MG INJ IV (10:51)
[2018-04-20] MEDS: HYDROmorphONE 1 MG/ML SYG IV (10:52)
[2018-04-20] MEDS: ONDANSETRON 4 MG INJ IV (14:59)
[2018-04-20] MEDS: ACETAMINOPHEN 325 MG TAB PO (16:58)
[2018-04-21] MEDS: ENOXAPARIN 40 MG/0.4 ML SYG SC (06:10)
[2018-04-21] MEDS: SODIUM HYPOCHLORITE (1/40) 1 APPLIC BTL IRR (08:40)
[2018-04-21] MEDS: SENNA TAB PO ×2 (08:41→21:35)
[2018-04-21] MEDS: DOCUSATE SODIUM 100 MG CAP PO ×2 (08:41→21:36)
[2018-04-21] MEDS: IBUPROFEN 400 MG TAB PO ×2 (10:30→22:30)
[2018-04-21 15:13] LABS: ADD MAN DIFF? NO
[2018-04-21 15:14] LABS: BASOPHIL # 0.1 10^3/ul (0.0-0.1); BASOPHILS % 0.7 % (0.0-2.0); EOSINOPHILS # 0.3 10^3/ul (0.0-0.5); HEMATOCRIT 34.1 % (37.0-47.0); LYMPHOCYTES # 1.7 10^3/ul (0.8-2.9); LYMPHOCYTES % 25.7 % (15.0-51.0); MEAN CORPUSCULAR HEMOGLOBIN 28.1 pg (29.0-33.0); MEAN CORPUSCULAR HGB CONC 32.3 g/dl (32.0-37.0); MONOCYTE # 0.7 10^3/ul (0.3-0.9); MONOCYTES % 9.7 % (0.0-11.0); PLATELET COUNT 478 10^3/UL (140-415); RED BLOOD COUNT 3.92 10^6/ul (4.20-5.40); RED CELL DISTRIBUTION WIDTH 14.7 % (11.5-14.5)
[2018-04-21 15:14] LABS: WHITE BLOOD COUNT 6.7 10^3/ul (4.8-10.8)
[2018-04-21 15:32] LABS: ALANINE AMINOTRANSFERASE 42 IU/L (13-69); ALBUMIN 3.1 g/dl (3.3-4.9); ALKALINE PHOSPHATASE 141 IU/L (42-121); ASPARTATE AMINO TRANSFERASE 22 IU/L (15-46); BILIRUBIN,INDIRECT 0.2 mg/dl (0-1.1); BILIRUBIN,TOTAL 0.2 mg/dl (0.2-1.3); TOTAL PROTEIN 6.4 g/dl (6.1-8.1)
[2018-04-21 15:34] LABS: ANION GAP 9 (5-13); Estimated GFR > 60 mL/min (>60)
[2018-04-21 15:35] LABS: BLOOD UREA NITROGEN 15 mg/dl (7-20); CALCIUM 8.6 mg/dl (8.4-10.2); CARBON DIOXIDE 25 mmol/L (21-31); CHLORIDE 106 mmol/L (97-110); CREATININE 0.94 mg/dl (0.44-1.00); GLUCOSE 110 mg/dl (70-220); SODIUM 140 mmol/L (135-144)
[2018-04-22] MEDS: ENOXAPARIN 40 MG/0.4 ML SYG SC (06:36)
[2018-04-22] MEDS: DOCUSATE SODIUM 100 MG CAP PO ×2 (09:00→20:53)
[2018-04-22] MEDS: SENNA TAB PO ×2 (09:00→20:52)
[2018-04-22] MEDS: SODIUM HYPOCHLORITE (1/40) 1 APPLIC BTL IRR (09:00)
[2018-04-22] MEDS: IBUPROFEN 400 MG TAB PO ×2 (10:30→22:30)
[2018-04-22] MEDS: LIDOCAINE 4% SOLUTION 50 ML BTL TOP (11:45)
[2018-04-22] MEDS: HYDROmorphONE 1 MG/ML SYG IV (11:50)
[2018-04-22] MEDS: ONDANSETRON 4 MG INJ IV (13:24)
[2018-04-22] MEDS: ACETAMINOPHEN 325 MG TAB PO (13:25)
[2018-04-23] MEDS: HYDROCODONE/APAP (5/325) TAB PO ×2 (01:31→13:32)
[2018-04-23] MEDS: ENOXAPARIN 40 MG/0.4 ML SYG SC (06:17)
[2018-04-23] MEDS: SODIUM HYPOCHLORITE (1/40) 1 APPLIC BTL IRR (09:00)
[2018-04-23] MEDS: DOCUSATE SODIUM 100 MG CAP PO (09:00)
[2018-04-23] MEDS: SENNA TAB PO (09:00)
[2018-04-23] MEDS: IBUPROFEN 400 MG TAB PO (10:30)
== END 2018-04-23 20:20 | disposition home health service (06) | DRG 856 ==
LOC: PP2 20:22 → 2NE 04-11 17:34 → FTE 13:52 → PP2 19:19
PROC: 0KBP0ZZ Excision of Left Hip Muscle, Open Approach (ICD-10-PCS; principal; 2018-04-06 10:00)
PROC: 0KBN0ZZ Excision of Right Hip Muscle, Open Approach (ICD-10-PCS; 2018-04-06 10:00)
PROC: 30233N1 Transfusion of Nonautologous Red Blood Cells into Peripheral Vein, Percutaneous Approach (ICD-10-PCS; 2018-04-06 10:00)
DX: T81.40XA Infection following a procedure, unspecified, initial encounter (principal); A41.9 Sepsis, unspecified organism; L03.317 Cellulitis of buttock; N17.9 Acute kidney failure, unspecified; T85.79XA Infection and inflammatory reaction due to other internal prosthetic devices, implants and grafts, initial encounter; T81.44XA Sepsis following a procedure, initial encounter; B96.89 Other specified bacterial agents as the cause of diseases classified elsewhere; D63.8 Anemia in other chronic diseases classified elsewhere; E78.00 Pure hypercholesterolemia, unspecified; K59.00 Constipation, unspecified; M79.89 Other specified soft tissue disorders
CPT/HCPCS: 36415; 36430; 71045; 74177; 80048; 80061; 80076; 80202; 81001; 81025; 82728; 83036; 83540; 83605; 83735; 84100; 84439; 84443; 84484; 84703; 85025; 85610; 85730; 86850; 86900; 86901; 86920; 87040; 87070; 87075; 87081; 87086; 87102; 88304; 93005; 96365; 96375; 99291-25